=== PATIENT | male | born 1985 | race African-American/Black ===

== ENCOUNTER 2018-11-01 15:15 | Inpatient (IN) | payer OTHER, MEDICAID ==
[~2018-11-01] VITALS: Ht 182.9 cm; Wt 131.5 kg
[~2018-11-01 15:15] MED LIST: DIVA500T52 PO; QUET100T PO; QUET200T PO; TOPI25 PO
[2018-11-01] MEDS ORDERED: QUEtiapine FUMARATE 100 MG TABLET PO ONE (16:30)
[2018-11-01] MEDS ORDERED: LORazepam 2 MG TABLET PO ONE (16:30)
[2018-11-01 17:06] LABS: BASOPHILS % (AUTO) 1.2 % (0.0-2.0); EOSINOPHILS % (AUTO) 2.5 % (1.0-6.0); HEMATOCRIT 43.2 % (41-53); HEMOGLOBIN 14.6 g/dL (13.5-17.5); LYMPHOCYTES # (AUTO) 3.1 K/uL (1.0-4.8); MEAN CORPUSCULAR HEMOGLOBIN 30.8 pg (26.0-34.0); MEAN CORPUSCULAR HGB CONC 33.8 G/dL (31.0-37.0); MEAN CORPUSCULAR VOLUME 91 fL (80-100); MONOCYTES # (AUTO) 0.6 K/uL (0.1-1.0); MONOCYTES % (AUTO) 8.1 % (2.0-9.0); NEUTROPHILS # (AUTO) 3.7 K/uL (1.8-7.7); NEUTROPHILS % (AUTO) 48.2 % (40.0-70.0); PLATELET COUNT (AUTO) 281 K/uL (150-450); RED BLOOD CELL COUNT(AUTO) 4.74 MIL/uL (4.50-5.90); RED CELL DISTRIBUTION WIDTH 14.4 % (11.5-14.5)
[2018-11-01] MEDS ORDERED: ZOLPIDEM TARTRATE 10 MG TABLET PO PRN (17:15)
[2018-11-01 17:29] LABS: ANION GAP 10 mmol/L (8-16); CALCIUM, TOTAL 9.3 mg/dL (8.8-10.5); CARBON DIOXIDE 26 mmol/L (22-29); CHLORIDE 105 mmol/L (98-107); CREATININE 0.87 mg/dL (0.60-1.30); GLOMERULAR FILTR. RATE CALC > 60 mL/min (>60); GLUCOSE,RANDOM 85 mg/dL (70-110); SODIUM SERUM 141 mmol/L (136-145); UREA NITROGEN, BLOOD 13 mg/dL (7-18)
[2018-11-01 17:35] LABS: ALANINE AMINOTRANSFERASE 34 U/L (12-78); ALKALINE PHOSPHATASE 96 U/L (46-116); ASPARTATE AMINOTRANSFERASE 41 U/L (15-37); BILIRUBIN,TOTAL 0.4 mg/dL (0.1-1.0); TOTAL PROTEIN, SERUM 7.8 g/dL (6.4-8.2)
[2018-11-01 17:41] LABS: AMPHET/METH SCREEN,URINE POSITIVE (NEGATIVE); BARBITURATE SCREEN, URINE NEGATIVE (NEGATIVE); BENZODIAZEPINES SCREEN,URINE NEGATIVE (NEGATIVE); CANNABINOID SCREEN,URINE NEGATIVE (NEGATIVE); COCAINE SCREEN,URINE NEGATIVE (NEGATIVE); METHADONE SCREEN, URINE NEGATIVE (NEGATIVE); OPIATE SCREEN,URINE NEGATIVE (NEGATIVE); PHENCYCLIDINE SCREEN,URINE NEGATIVE (NEGATIVE)
[2018-11-01 17:52] LABS: VALPROIC ACID < 3 mcg/mL (50-100)
[2018-11-01 18:40] VITALS: BP 137/85
[2018-11-01] MEDS ORDERED: ACETAMINOPHEN 325 MG TABLET PO PRN (21:15)
[2018-11-01] MEDS ORDERED: IBUPROFEN 600 MG TABLET PO PRN (21:15)
[2018-11-02 07:06] LABS: CHOL/HDL RATIO 5.7 (4.2-7.3)
[2018-11-02] MEDS: HALOPERIDOL 5 MG TABLET PO PRN ×2 (08:03→17:43)
[2018-11-02] MEDS: LORazepam 2 MG TABLET PO PRN ×2 (08:03→17:44)
[2018-11-02 08:22] VITALS: BP 119/69
[2018-11-02] MEDS ORDERED: ACETAMINOPHEN 325 MG TABLET PO PRN (12:15)
[2018-11-02] MEDS ORDERED: IBUPROFEN 600 MG TABLET PO PRN (12:15)
[2018-11-02 17:41] VITALS: BP 131/74
[2018-11-02] MEDS: HALOPERIDOL 5 MG TABLET PO SCH ×2 (18:55→21:08)
[2018-11-03 08:33] VITALS: BP 128/79
[2018-11-03] MEDS: LORazepam 2 MG TABLET PO PRN ×2 (08:50→16:09)
[2018-11-03] MEDS: DIVALPROEX SODIUM 500 MG DR TABLET PO SCH ×2 (08:50→16:09)
[2018-11-03] MEDS: HALOPERIDOL 5 MG TABLET PO PRN ×2 (08:51→16:09)
[2018-11-03 16:55] VITALS: BP 128/75
[2018-11-03] MEDS: HALOPERIDOL 5 MG TABLET PO SCH (20:12)
[2018-11-04 09:18] VITALS: BP 139/69
[2018-11-04] MEDS: DIVALPROEX SODIUM 500 MG DR TABLET PO SCH (09:36)
[2018-11-04] MEDS: HALOPERIDOL 5 MG TABLET PO PRN (09:38)
[2018-11-04] MEDS: LORazepam 2 MG TABLET PO PRN (09:38)
[2018-11-04] MEDS ORDERED: HALO5TAB2 PO (09:40)
[2018-11-04] MEDS ORDERED: DIVA-78 PO (09:40)
== END 2018-11-04 12:45 | disposition home or self-care (01) | DRG 885 ==
LOC: EMS 15:17 → 3EI 18:09
PROVIDERS: ADMIT Psychiatry & Neurology Psychiatry; ATTEND Psychiatry & Neurology Psychiatry
DX: F20.0 Paranoid schizophrenia (principal); G89.29 Other chronic pain; F15.90 Other stimulant use, unspecified, uncomplicated; F12.90 Cannabis use, unspecified, uncomplicated; E78.5 Hyperlipidemia, unspecified; M54.9 Dorsalgia, unspecified; Z88.8 Allergy status to other drugs, medicaments and biological substances
CPT/HCPCS: G0480